=== PATIENT | female | born 1960 | race American Indian/Alaskan Native ===

== ENCOUNTER 2016-09-14 19:15 | Emergency (ER) | payer OTHER ==
--- NOTE | 2016-09-14 20:10 | Emergency Department Report ---
ED General Adult HPI - General Stated complaint: WEAKNESS,SYNCOPAL EPISODE Time Seen by Provider: 09/14/16 20:02 - History of Present Illness Initial comments: This is a pleasant 55-year-old female who is brought in by EMS due to syncopal episode at [facility] just prior to arrival. Patient states that throughout the afternoon she's had some mild lightheadedness. She has had to wait in her car at times because she's felt lightheaded and stop in the stores and sit down for a little bit. She states that she was recently started on amlodipine 10 mg by her doctor on Sunday. She states that she has been on this medication before but has been off for a few months. She reports having emesis times once earlier in the day which is not unusual given her a bariatric surgery. She states that she did drink some fluids and eat some popcorn after the emesis and felt from a hydration standpoint that she was keeping up adequately today. Ultimately she did have the syncopal episode and [facility] again she was feeling lightheaded prior to this and it was sitting down and felt herself starting to black out and the next thing she noted was people looking down at her while she is lying on the ground. She denies any chest pain or headache associated with this. States that she's been feeling well otherwise. States that she is very active in general. - Related Data Allergies Allergy/AdvReac Type Severity Reaction Status Date / Time No Known Allergies Allergy Unverified 09/14/16 20:18 ED Review of Systems ROS: Stated complaint: WEAKNESS,SYNCOPAL EPISODE Other details as noted in HPI Comment: All other systems reviewed and negative Constitutional: denies: chills, fever Eyes: denies: eye pain, eye discharge, vision change ENT: denies: ear pain, throat pain Respiratory: denies: cough, shortness of breath, wheezing Cardiovascular: denies: chest pain, palpitations Endocrine: no symptoms reported Gastrointestinal: denies: abdominal pain, nausea, diarrhea Genitourinary: denies: urgency, dysuria, discharge Musculoskeletal: denies: back pain, joint swelling, arthralgia Skin: denies: rash, lesions Neurological: denies: headache, weakness, paresthesias Psychiatric: denies: anxiety, depression Hematological/Lymphatic: denies: easy bleeding, easy bruising ED Physical Exam - General Limitations: No Limitations General appearance: alert, in no apparent distress - Head Head exam: Present: atraumatic, normocephalic - Eye Eye exam: Present: normal appearance. Absent: EOMI, scleral icterus - ENT ENT exam: Present: normal exam, normal orophraynx, mucous membranes moist - Neck Neck exam: Present: normal inspection - Respiratory Respiratory exam: Present: normal lung sounds bilaterally. Absent: respiratory distress, wheezes - Cardiovascular Cardiovascular Exam: Present: regular rate, normal rhythm. Absent: systolic murmur, diastolic murmur, rubs, gallop - GI/Abdominal GI/Abdominal exam: Present: soft, normal bowel sounds. Absent: tenderness, guarding - Extremities Exam Extremities exam: Present: normal inspection. Absent: tenderness, pedal edema, calf tenderness - Back Exam Back exam: Present: normal inspection. Absent: tenderness, CVA tenderness (R), CVA tenderness (L) - Neurological Exam Neurological exam: Present: alert, oriented X3 - Psychiatric Psychiatric exam: Present: normal affect, normal mood - Skin Skin exam: Present: warm, dry, intact, normal color. Absent: rash ED Course Vital Signs 09/14/16 09/14/16 09/14/16 20:04 20:10 20:15 Temperature 98.2 F Pulse Rate 89 84 82 Respiratory 20 20 14 Rate Blood Pressure 143/86 143/86 O2 Sat by Pulse 100 98 Oximetry 09/14/16 09/14/16 20:30 20:45 Temperature Pulse Rate 81 80 Respiratory 17 18 Rate Blood Pressure 146/89 146/89 O2 Sat by Pulse 100 100 Oximetry - Reevaluation(s) Reevaluation #1: 09/14/16 21:13 ECG a 2104 with normal sinus rhythm at 80 bpm with a normal KS and QRS. Normal axis is noted no concerning findings. Reevaluation #2: 09/14/16 21:57 Patient received IV fluids here. She continued to be asymptomatic throughout her time here. Labs are unremarkable. Hemoglobin is normal. I did consider cardiac etiology to her syncopal episode. She is continued to be sinus rhythm on the monitor here. I think this is unlikely. Her presentation seems more consistent with being overmedicated with her blood pressure medication. 10 mg dose of amlodipine is not that significant however I think to tuna being novel to her suspect she is more sensitive. I did encourage her to cut the amlodipine in half and start with half dose. She may be a little ultimately get to a full dose for now she should see a half dose. I did encourage frequent blood pressure monitoring as well. Safe for home. Critical care attestation.: If time is entered above; I have spent that time in minutes in the direct care of this critically ill patient, excluding procedure time. ED Disposition Clinical Impression: Syncope Qualifiers: Syncope type: Yoon-Pierce syncope Qualified Code(s): I45.9 - Conduction disorder, unspecified Disposition: DISCHARGED TO HOME OR SELFCARE Is pt being admited?: No Does the pt Need Aspirin: No Condition: Stable Additional Instructions: Cut your amlodipine tablets in half for a 5mg dose daily. Follow-up with your doctor to discuss further management of your blood pressure medication. Ensure you are drinking plenty of fluids and eating a healthy diet. Time of Disposition: 21:56
[2016-09-14] MEDS ORDERED: NACL 0.9% 1000 ML 1,000 ML IV ONE (20:14)
[2016-09-14 21:18] LABS: Basophils % (Auto) 0.9 % (0.0-1.8); Eosinophils % (Auto) 3.3 % (0.0-4.3); Hematocrit 34.3 % (30.3-42.9); Hemoglobin 11.2 gm/dl (10.1-14.3); Mean Corpuscular HGB Conc 33 % (30-34); Mean Corpuscular Hemoglobin 27 pg (28-32); Mean Corpuscular Volume 81 fl (79-97); Platelet Count 250 K/mm3 (140-440); Red Blood Count 4.25 M/mm3 (3.65-5.03); Red Cell Distribution Width 13.9 % (13.2-15.2); White Blood Count 9.7 K/mm3 (4.5-11.0)
[2016-09-14 21:37] LABS: Alanine Aminotransferase 13 units/L (7-56); Albumin 3.4 g/dL (3.9-5); Albumin/Globulin Ratio 1.3 %; Alkaline Phosphatase 106 units/L (35-129); Anion Gap 13 mmol/L; Bilirubin,Total 0.2 mg/dL (0.1-1.2); Blood Urea Nitrogen 14 mg/dL (7-17); Calcium 8.8 mg/dL (8.4-10.2); Carbon Dioxide 23 mmol/L (22-30); Chloride 105.7 mmol/L (98-107); Glucose 74 mg/dL (65-100); Potassium 3.8 mmol/L (3.6-5.0); Sodium 138 mmol/L (137-145); Total Protein 6.1 g/dL (6.3-8.2)
[2016-09-14 22:15] VITALS: BP 144/99
== END 2016-09-14 22:15 | disposition home or self-care (01) ==
LOC: ED 19:15
DX: I45.9 Conduction disorder, unspecified (principal)
CPT/HCPCS: 36415; 80053; 85025; 93005; 93010; 96360; 99284; J7030